=== PATIENT | male | born 1995 | race Native Hawaiian/Other Pacific Islander ===

== ENCOUNTER 2021-10-20 02:26 | Emergency (ER) | payer OTHER, SELFPAY ==
[2021-10-20 02:29] VITALS: BP 139/77; PULSE 60; RESP 18; TEMP 36.8; O2SAT 99; BMI 24.9
--- NOTE | 2021-10-20 02:29 | CTR_ITS ---
PROCEDURE INFORMATION: Exam: CT Head Without Contrast Exam date and time: 10/20/2021 2:55 AM Age: 26 years old Clinical indication: Syncope and collapse; Additional info: Head injury TECHNIQUE: Imaging protocol: Computed tomography of the head without contrast. Radiation optimization: All CT scans at this facility use at least one of these dose optimization techniques: automated exposure control; mA and/or kV adjustment per patient size (includes targeted exams where dose is matched to clinical indication); or iterative reconstruction. COMPARISON: No relevant prior studies available. RADIATION DOSE METRICS: Total DLP (mGy-cm): 896.45 FINDINGS: Brain: Normal. No hemorrhage. Unremarkable white matter. No mass effect. Cerebral ventricles: No ventriculomegaly. Paranasal sinuses: Visualized sinuses are unremarkable. No fluid levels. Mastoid air cells: Visualized mastoid air cells are well aerated. Bones/joints: Unremarkable. No acute fracture. Soft tissues: Unremarkable. CT/CT head wo con* [id number] IMPRESSION: No acute intracranial abnormality.
--- NOTE | 2021-10-20 02:30 | ECG_ITS ---
[facility] Test Date: 2021-10-20 Pat Name: Rafat Rojas Department: Room: Gender: Male Senior Web Analyst: : 1995 Requested By: Bandar Cervantes Order Number: [id number] Moreno MD: Leander Blandon M.D. Measurements Intervals [place] Rate: 57 P: 49 WV: 175 QRS: 89 QRSD: 114 T: 63 QT: 435 QTc: 426 Interpretive Statements SINUS BRADYCARDIA INCOMPLETE RIGHT BUNDLE BRANCH BLOCK [90+ ms QRS DURATION, TERMINAL R IN V1/V2, 40+ ms S IN I/aVL/V4/V5/V6] No previous ECG available for comparison Electronically Signed On 10-20-2021 16:50:17 CDT by Leander Blandon M.D. [id number]
--- NOTE | 2021-10-20 02:30 | W.ED.SYNCOPE ---
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 He states that he had felt a little hot and then got lightheaded and had a syncopal event. When he passed out he fell backwards and did hit his head and has an abrasion to his posterior scalp. Denies any chest pain or headache before the event. He has a mild headache currently. He denies passing out before denies any vomiting or diarrhea states he feels much improved currently. Associated symptoms: Deny abdominal pain, fever(s), headache(s) or nausea Review of Systems Const: Denies: fever(s), chills, body aches or change in appetite Eyes: Denies: blurry vision or eye discomfort ENMT: Denies: throat pain or dental pain Card: Reports: syncope Resp: Denies: dyspnea GI: Denies: abdominal pain, nausea, vomiting or diarrhea : Denies: dysuria Musc: Denies: neck pain or back pain Skin/Breast: Denies: rash Neuro: Denies: headache(s) Psych: Denies: depression Johan/Lymph: Denies: easy bruising All/Imm: Denies: urticaria PFSH ED PFSH: Medical History (Updated 10/20/21 @ 03:23 by Bandar Cervantes MD) No pertinent past medical history Social History (Updated 10/20/21 @ 02:31 by Bandar Cervantes MD) Substance/Drug Use: never Physical Exam Const: COMMON NORMALS: no acute distress, patient oriented x3 and healthy appearing HENMT: COMMON NORMALS: normocephalic; head/scalp not atraumatic (abrasion and hematoma to poserior scalp) HEAD & SCALP: normocephalic; not atraumatic (abrasion and hematoma to poserior scalp) Eye: COMMON NORMALS: Equal, round and reactive pupils present and EOMs intact bilaterally PUPIL: Yes Equal, round and reactive pupils present Neck/C-Spine: COMMON NORMALS: full ROM and supple Chest: COMMONS NORMALS: normal inspection of the chest and normal palpation of entire chest wall Resp: COMMON NORMALS: normal respiratory effort, No retractions, No use of accessory muscles and clear to auscultation bilaterally AUSCULTATION: clear to auscultation bilaterally Cardio: COMMON NORMALS: regular rate, regular rhythm and No murmurs present (Cardio) RATE: regular rate RHYTHM: regular rhythm GI: COMMON NORMALS: Normal to inspection, nondistended, normoactive bowel sounds present, Soft to palpation, non-tender and no masses PALPATION: Yes Soft to palpation Extremity: COMMON NORMALS: normal to inspection and full ROM Neuro: COMMON NORMALS: patient oriented x3, moves all extremities and no focal motor deficits Psych: COMMON NORMALS: mental status grossly normal, Normal thought process present and cooperative THOUGHT PROCESS: Normal thought process present Skin: COMMON NORMALS: no rashes or lesions noted and no wounds GENERAL SKIN EXAM: no rashes or lesions noted Course Vital Signs: Vital signs: Vital Signs Temperature 98.2 F 10/20/21 02:29 Pulse Rate 59 L 10/20/21 02:33 Respiratory Rate 14 10/20/21 02:33 Blood Pressure 139/77 10/20/21 02:33 Pulse Oximetry 100 10/20/21 02:33 MDM - Syncope Medical Decision Making Patient presents here with a closed head injury along with a syncopal event. It is likely a vagal event or he may have overheated. He is well-appearing here EKG blood work head CT-year-old normal he does not have a laceration he is stable for discharge is to follow-up with PCP understands agrees to plan. Lab Data : 10/20/21 02:40 10/20/21 02:[address] 10/20/21 02:29 IMPRESSION: No acute intracranial abnormality. Laboratory Results WBC 6.7 10^3/uL (4.0-10.0) 10/20/21 02:40 RBC 4.83 10^6/uL (4.1-5.3) 10/20/21 02:40 Hgb 15.0 g/dL (11.7-16.6) 10/20/21 02:40 Hct 42.2 % (42.0-52.0) 10/20/21 02:40 MCV 87.4 fl (80-94) 10/20/21 02:40 MCH 31.1 pg (28.0-34.0) 10/20/21 02:40 MCHC 35.5 g/dL (30.0-36.0) 10/20/21 02:40 RDW 11.9 % (12.1-15.1) L 10/20/21 02:40 Plt Count 132 10^3/cmm (130-400) 10/20/21 02:40 MPV 11.9 fL (7.4-10.4) H 10/20/21 02:40 Neut % (Auto) 53.1 % 10/20/21 02:40 Lymph % (Auto) 39.2 % 10/20/21 02:40 [place] % (Auto) 4.8 % 10/20/21 02:40 Eos % (Auto) 1.8 % 10/20/21 02:40 Baso % (Auto) 0.9 % 10/20/21 02:40 Neut # (Auto) 3.54 10^3/uL (1.8-7.7) 10/20/21 02:40 Lymph # (Auto) 2.6 10^3/uL (0.8-4.8) 10/20/21 02:40 [place] # (Auto) 0.3 10^3/uL (0.2-0.9) 10/20/21 02:40 Eos # (Auto) 0.1 10^3/uL (0.0-0.8) 10/20/21 02:40 Baso # (Auto) 0.1 10^3/uL (0.0-0.1) 10/20/21 02:40 Nucleated RBC % (auto) 0 % 10/20/21 02:40 Nucleated RBCs # 0.0 /100WBC 10/20/21 02:40 Sodium 139 mmol/L (136-145) 10/20/21 02:40 Potassium 4.0 mmol/L (3.5-5.1) 10/20/21 02:40 Chloride 101 mmol/L (98-107) 10/20/21 02:40 Carbon Dioxide 27 mmol/L (22-29) 10/20/21 02:40 Anion Gap 15.0 (5-19) 10/20/21 02:40 BUN 20 mg/dL (6-20) 10/20/21 02:40 Creatinine 1.1 mg/dL (0.7-1.2) 10/20/21 02:40 GFR Calculation 81.6 mL/min (90-130) L 10/20/21 02:40 Glucose 119 mg/dL (65-115) H 10/20/21 02:40 Calculated Osmolality 292 mOsm/kg (285-295) 10/20/21 02:40 Calcium 9.0 mg/dL (8.5-10.5) 10/20/21 02:40 EKG Data EKG 1: I personally reviewed and interpreted this EKG as follows: EKG interpretation date: 10/20/21 EKG interpretation time: 02:31 Interpretation: sinus daisy hr [address] or t wave abnormalities qrs 114 qtc 430 Discharge Plan Discharge Patient Disposition: Home Clinical Impression: Syncope Qualifiers: Syncope type: unspecified Qualified Code(s): R55 - Syncope and collapse Closed head injury Qualifiers: Encounter type: initial encounter Qualified Code(s): S09.90XA - Unspecified injury of head, initial encounter Discharge Orders: Discharge ED (Routine); Ordered 10/20/21 Ordered By: Bandar Cervantes Referrals: Valarie Leong FNP [Referring] - Discharge Diet: Advance as tolerated Discharge Activity: Resume usual activity Patient Instructions: Syncope (ED), Head Injury (ED) Coding Level of Care Code ED Centrifugal Separator for Chg Fwd Exam Comprehensive
[2021-10-20 02:33] VITALS: BP 139/77; PULSE 59; RESP 14; O2SAT 100
[2021-10-20] MEDS: sodium chloride 0.9% 1,000 ML 999 ML IV (02:35)
[2021-10-20 02:59] LABS: Basophils # 0.1 10^3/uL (0.0-0.1); Basophils % 0.9 %; Eosinophils # 0.1 10^3/uL (0.0-0.8); Eosinophils % 1.8 %; Hematocrit 42.2 % (42.0-52.0); Lymphocytes # 2.6 10^3/uL (0.8-4.8); Lymphocytes % 39.2 %; Mean Corpuscular HGB Conc 35.5 g/dL (30.0-36.0); Mean Corpuscular Hemoglobin 31.1 pg (28.0-34.0); Mean Corpuscular Volume 87.4 fl (80-94); Mean Platelet Volume 11.9 fL (7.4-10.4); Monocytes # 0.3 10^3/uL (0.2-0.9); Monocytes % 4.8 %; Neutrophils # 3.54 10^3/uL (1.8-7.7); Neutrophils % 53.1 %; Nucleated Red Blood Cells % 0 %; Platelet Count 132 10^3/cmm (130-400); Red Blood Count 4.83 10^6/uL (4.1-5.3); Red Cell Distribution Width 11.9 % (12.1-15.1); White Blood Count 6.7 10^3/uL (4.0-10.0)
[2021-10-20 03:03] VITALS: BP 127/66; PULSE 63; RESP 16; O2SAT 100
[2021-10-20 03:21] LABS: Blood Urea Nitrogen 20 mg/dL (6-20); Carbon Dioxide 27 mmol/L (22-29); Chloride 101 mmol/L (98-107); Glomerular Filtration Rate 81.6 mL/min (90-130); Glucose 119 mg/dL (65-115); Osmolality Calculated 292 mOsm/kg (285-295); Sodium 139 mmol/L (136-145)
[2021-10-20 03:26] VITALS: BP 127/66; PULSE 63; RESP 16; O2SAT 100
== END 2021-10-20 03:35 | disposition home or self-care (01) ==
PROVIDERS: Emergency Provider Emergency Medicine
DX: R55 Syncope and collapse (principal); S09.8XXA Other specified injuries of head, initial encounter; S00.01XA Abrasion of scalp, initial encounter; W18.39XA Other fall on same level, initial encounter; Y99.0 Civilian activity done for income or pay
CPT/HCPCS: 70450; 80048; 85025; 93005; 96360; 99284; J7030